=== PATIENT | female | born 1975 | race Caucasian/White ===

== ENCOUNTER → 2019-12-06 12:17 | Outpatient (BNVA) | payer OTHER, SELFPAY | PROVIDERS: Family Provider Nurse Practitioner Family; PCP Nurse Practitioner Family; Visit Provider Nurse Practitioner Family | DX: E07.9 Disorder of thyroid, unspecified (principal); I10 Essential (primary) hypertension; M72.2 Plantar fascial fibromatosis; E03.9 Hypothyroidism, unspecified | CPT/HCPCS: 80053; 80061; 84439; 84443; 84481; 85025 ==

== ENCOUNTER → 2020-03-12 11:57 | Outpatient (BNVA) | payer OTHER, SELFPAY | PROVIDERS: Family Provider Nurse Practitioner Family; PCP Nurse Practitioner Family; Visit Provider Nurse Practitioner Family | DX: E03.9 Hypothyroidism, unspecified (principal); I10 Essential (primary) hypertension; M72.2 Plantar fascial fibromatosis | CPT/HCPCS: 80053; 84439; 84443; 84481; 85025 ==

== ENCOUNTER → 2020-03-28 13:53 | Outpatient (BNVA) | payer OTHER, SELFPAY | PROVIDERS: Family Provider Nurse Practitioner Family; PCP Nurse Practitioner Family; Visit Provider Nurse Practitioner Family | DX: J30.89 Other allergic rhinitis (principal); Z20.828 Contact with and (suspected) exposure to other viral communicable diseases | CPT/HCPCS: 87400; 87635 ==

== ENCOUNTER 2020-08-20 16:21 | Emergency (ER) | payer BC, SELFPAY ==
[2020-08-20 17:20] VITALS: BP 121/80; PULSE 100; RESP 16; TEMP 39.1; O2SAT 94; BMI 27.8
--- NOTE | 2020-08-20 18:30 | US_ITS ---
WS: [id number] ULTRASOUND LEFT BREAST HISTORY: Possible abscess. COMPARISON: None available. TECHNIQUE: 2-D and Doppler. At 12:00 is a hypoechoic nodule measuring 1.8 x 0.8 cm. No significant increased vascularity. There i s soft tissue edema and thickening. US/US breast LT limited* [id number] IMPRESSION: BI-RADS: 0-Incomplete: Need additional imaging evaluation FOLLOW-UP: Need Additional Imaging Incomplete evaluation of the LEFT breast. Possible abscess. Differential includ es necrotic neoplasm. Recommend follow-up ultrasound and mammogram if patient i s able to tolerate a mammogram. Short-term follow-up 3-4 weeks recommended.
--- NOTE | 2020-08-20 18:30 | W.ED.SKABFB ---
HPI - Skin/Abscess/Foreign Bdy General: Chief complaint: Skin/Abscess/Foreign Body Stated complaint: abscess chest, fever, weakness Time Seen by Provider: 08/20/20 18:19 History of Present Illness: HPI narrative: Patient has area on left breast that started last night that is tender swollen and very painful denies any insect bite or sting denies any pimple. Has no significant medical history besides hypothyroidism and hypertension MD complaint: abscess/boil Onset (ago): hour(s) Tetanus up to date: unsure Location: chest (Left breast) Severity: moderate Severity scale (1-10): 5 Quality: burning and constant Pain Consistency: constant Relieving factors: none Exacerbating factors: none Context: none Associated symptoms: Reports chills and fever(s); Deny nausea or vomiting Review of Systems Const: Reports: fever(s) and chills Eyes: Denies: change in vision or blurry vision ENMT: Denies: throat pain or nasal congestion Card: Denies: chest pain or dyspnea on exertion Resp: Denies: dyspnea, productive cough or non-productive cough GI: Denies: abdominal pain, nausea or vomiting Musc: Denies: extremity pain Skin/Breast: Reports: erythema, skin tenderness (Left breast appears to be an abscess very tender) and skin swelling; Denies: rash Neuro: Denies: headache(s) Psych: Denies: anxiety or depression Porfirio/Lymph: Denies: easy bruising PFSH ED PFSH: Medical History (Updated 08/20/20 @ 19:35 by BABITA Alberto) Acquired hypothyroidism Essential (primary) hypertension Family History Family/Other No pertinent family history Social History (Updated 08/20/20 @ 17:25 by Ap Gaxiola RN) Smoking and tobacco status: never smoked Second hand smoke exposure: No Alcohol intake: never Substance/Drug Use: never Lives independently: Yes Housing: House Current occupational status: unemployed History of recent travel: No Current gender identity: Female Physical Exam Const: COMMON NORMALS: no acute distress, average body habitus and patient oriented x3 HENMT: COMMON NORMALS: normocephalic HEAD & SCALP: normal to inspection and normocephalic FACE & SINUS: normal facial exam Eye: COMMON NORMALS: conjunctivae normal GENERAL EYE: appearance normal, both eyes and all related structures CONJUNCTIVA: Yes conjunctivae normal Neck/C-Spine: COMMON NORMALS: no JVD Chest: COMMONS NORMALS: normal inspection of the chest Resp: COMMON NORMALS: normal respiratory effort and clear to auscultation bilaterally AUSCULTATION: clear to auscultation bilaterally Cardio: COMMON NORMALS: no JVD, regular rate and regular rhythm RATE: regular rate RHYTHM: regular rhythm GI: COMMON NORMALS: Normal to inspection, nondistended, normoactive bowel sounds present Extremity: COMMON NORMALS: normal to inspection and full ROM Neuro: COMMON NORMALS: patient oriented x3 Skin: OTHER: Redness to the tail of left breast midline tingling about 2 inches out from the cyst area proximal more than distal Procedures Abscess I/D Site: other (Breast) Side (if applicable): left Local Anesthetic: lidocaine 1% Amount of anesthesia used (mL): 3 Technique: incised with #11 blade Irrigation: Yes Packing used?: iodoform Complications: other (Patient had a sebaceous cyst I did not remove the sebaceous cyst wall but did remove the contents of the cyst) Course Vital Signs: Vital signs: Vital Signs Temperature 102.4 F H 08/20/20 17:20 Pulse Rate 100 08/20/20 17:20 Respiratory Rate 20 H 08/20/20 18:38 Blood Pressure 121/80 08/20/20 17:20 Pulse Oximetry 94 08/20/20 17:20 MDM - Skin/Abscess/Foreign Bdy Lab Data: Labs: Lab Results 08/20/20 08/20/20 08/20/20 Range/Units 18:30 18:30 18:30 WBC 17.7 H (4.0-10.0) 10^3/ uL RBC 5.03 (4.1-5.3) 10^6/u L Hgb 15.4 H (11.5-15.3) g/dL Hct 46.1 (37.0-47.0) % MCV 91.7 (81-99) fL MCH 30.6 (28.0-34.0) pg MCHC 33.4 (30.0-36.0) g/dL RDW 13.5 (12.1-15.1) % Plt Count 268 (130-400) 10^3/c mm MPV 10.1 (7.4-10.4) fL Neut % (Auto) 83.1 % Lymph % (Auto) 8.8 % [place] % (Auto) 6.3 % Eos % (Auto) 0.8 % Baso % (Auto) 0.6 % Neut # (Auto) 14.70 H (1.8-7.7) 10^3/u L Lymph # (Auto) 1.6 (0.8-4.8) 10^3/u L [place] # (Auto) 1.1 H (0.2-0.9) 10^3/u L Eos # (Auto) 0.1 (0.0-0.8) 10^3/u L Baso # (Auto) 0.1 (0.0-0.1) 10^3/u L Nucleated RBC % (a uto) 0 % Nucleated RBCs # 0.0 /100WBC Sodium 136 (136-145) mmol/L Potassium 3.8 (3.5-5.1) mmol/L Chloride 102 (98-107) mmol/L Carbon Dioxide 21 L (22-29) mmol/L Anion Gap 16.8 (5-19) BUN 9 (6-20) mg/dL Creatinine 0.6 (0.5-0.9) mg/dL GFR Calculation 107.6 (90-130) mL/min Glucose 120 H (65-115) mg/dL Calculated Osmolal ity 282 L (285-295) mOsm/k g Lactate 0.8 (0.5-2.2) mmol/L Calcium 9.4 (8.5-10.5) mg/dL Discharge Plan Discharge Patient Disposition: Home Clinical Impression: Sebaceous cyst Condition: Stable Prescriptions: New Keflex 500 mg capsule 500 mg PO BID 7 Days Qty: 14 RF: 0 hydrocodone-acetaminophen 5-325 mg tablet 1 tab PO Q6H PRN (Reason: pain) Qty: 10 RF: 0 No Action montelukast [Singulair] 10 mg tablet 10 mg PO DAILY Qty: 30 RF: 0 levothyroxine 150 mcg tablet 150 mcg PO QDAY Qty: 90 RF: 1 amlodipine 10 mg tablet 10 mg PO QDAY Qty: 90 RF: 1 Discharge Orders: Discharge Order (Routine); Ordered 10/06/20 Ordered By: Chuy Hanna Referrals: Sofia Rankin FNP [Primary Care Provider] - Discharge Diet: Usual diet Discharge Activity: Increase activity as tolerated Patient Instructions: Abscess (ED) Activity Restrictions/Additional Instructions: Follow-up with medical provider as directed. Take medications as prescribed. Return to the ER or your medical provider if condition worsens. Please read and understand discharge instructions. If any questions ask please. Follow-up packing in 24 hours Stand Alone Forms: Work/School Release Discharge Date/Time: 08/20/20 19:50 Coding Level of Care Code ED Wildlife [employer] Professor for Chg Fwd Exam Comprehensive
[2020-08-20 18:38] VITALS: RESP 20
[2020-08-20] MEDS: ondansetron 2 mg/ML SDV 2 mL 4 MG IVP (18:38)
[2020-08-20] MEDS: morphine 4 mg/mL SDV 1 mL IVP (18:38)
[2020-08-20 18:54] LABS: Basophils # 0.1 10^3/uL (0.0-0.1); Basophils % 0.6 %; Eosinophils # 0.1 10^3/uL (0.0-0.8); Eosinophils % 0.8 %; Hematocrit 46.1 % (37.0-47.0); Hemoglobin 15.4 g/dL (11.5-15.3); Lymphocytes # 1.6 10^3/uL (0.8-4.8); Lymphocytes % 8.8 %; Mean Corpuscular HGB Conc 33.4 g/dL (30.0-36.0); Mean Corpuscular Hemoglobin 30.6 pg (28.0-34.0); Mean Corpuscular Volume 91.7 fL (81-99); Mean Platelet Volume 10.1 fL (7.4-10.4); Monocytes # 1.1 10^3/uL (0.2-0.9); Monocytes % 6.3 %; Neutrophils % 83.1 %; Nucleated Red Blood Cells % 0 %; Platelet Count 268 10^3/cmm (130-400); Red Blood Count 5.03 10^6/uL (4.1-5.3); Red Cell Distribution Width 13.5 % (12.1-15.1); White Blood Count 17.7 10^3/uL (4.0-10.0)
[2020-08-20 18:58] LABS: Anion Gap 16.8 (5-19); Blood Urea Nitrogen 9 mg/dL (6-20); Calcium 9.4 mg/dL (8.5-10.5); Carbon Dioxide 21 mmol/L (22-29); Chloride 102 mmol/L (98-107); Glomerular Filtration Rate 107.6 mL/min (90-130); Glucose 120 mg/dL (65-115); Osmolality Calculated 282 mOsm/kg (285-295); Potassium 3.8 mmol/L (3.5-5.1); Sodium 136 mmol/L (136-145)
[2020-08-20] MEDS: cefTRIAXone 2,000 MG in sodium chloride 0.9% (plus) 50 ML 100 MG IV (19:02)
[2020-08-20 19:42] LABS: Lactate (Lactic Acid level) 0.8 mmol/L (0.5-2.2)
== END 2020-08-20 19:50 | disposition home or self-care (01) ==
PROVIDERS: Emergency Provider Nurse Practitioner Family; PCP Nurse Practitioner Family
DX: N60.82 Other benign mammary dysplasias of left breast (principal); I10 Essential (primary) hypertension
CPT/HCPCS: 10060; 12345; 76642; 80048; 83605; 85025; 87040; 87070; 87077; 87186; 96365; 96375; 99282; 99284; J0696; J2270; J2405

== ENCOUNTER → 2020-08-27 16:58 | Outpatient (BNVA) | payer BC, SELFPAY | PROVIDERS: PCP Nurse Practitioner Family; Visit Provider Nurse Practitioner Family | DX: L72.3 Sebaceous cyst (principal) | CPT/HCPCS: 84450; 87070 ==

== ENCOUNTER → 2020-10-23 16:54 | Outpatient (BNVA) | payer BC, SELFPAY | PROVIDERS: PCP Nurse Practitioner Family; Visit Provider Nurse Practitioner Family | DX: E03.9 Hypothyroidism, unspecified (principal); I10 Essential (primary) hypertension | CPT/HCPCS: 80053; 80061; 84439; 84443; 84481; 85025 ==

== ENCOUNTER → 2021-08-04 16:23 | Outpatient (BNVA) | payer BC, SELFPAY | PROVIDERS: PCP Nurse Practitioner Family; Visit Provider Nurse Practitioner Family | DX: Z76.0 Encounter for issue of repeat prescription (principal); M79.604 Pain in right leg; M79.605 Pain in left leg; E03.9 Hypothyroidism, unspecified; E04.1 Nontoxic single thyroid nodule; I10 Essential (primary) hypertension; Z71.89 Other specified counseling | CPT/HCPCS: 80053; 80061; 82306; 82607; 83735; 84439; 84443; 84481; 85025 ==

== ENCOUNTER 2021-09-03 12:34 | Outpatient (CLI) | payer BC, SELFPAY ==
--- NOTE | 2021-09-03 12:45 | US_ITS ---
WS: [id number] ULTRASOUND THYROID TECHNIQUE: Ultrasound of the thyroid. CLINICAL INFORMATION: E03.9 - Hypothyroidism, unspecified COMPARISON: None. FINDINGS: Thyroid: Enlarged thyroid with diffuse heterogeneous echotexture in both thyroid lobes most consisten t with multinodular goiter. Thyroid gland volume measures 19 cc on the left and 14 cc on the right. Right thyroid lobe: 6.0 cm x 2.4 cm x 2.6 cm Left thyroid lobe: 5.2 cm x 1.9 cm x 2.8 cm. Isthmus: 0.2 mm. Cervical lymphadenopathy: None. US/US thyroid [id number] IMPRESSION: 1. Enlarged heterogeneous thyroid with diffuse heterogeneous echotexture most consistent with multinodular goiter. Recommend correlation with thyroid functio n studies.
== END 2021-09-03 12:35 | disposition home or self-care (01) ==
LOC: RAD 12:36
PROVIDERS: PCP Nurse Practitioner Family; Visit Provider Nurse Practitioner Family
DX: E03.9 Hypothyroidism, unspecified (principal); E04.9 Nontoxic goiter, unspecified
CPT/HCPCS: 76536

== ENCOUNTER → 2021-12-25 12:12 | Outpatient (BNVA) | payer BC, SELFPAY | PROVIDERS: PCP Nurse Practitioner Family; Visit Provider Nurse Practitioner Family | DX: I10 Essential (primary) hypertension (principal) | CPT/HCPCS: 80053; 80061; 84439; 84443; 84481; 85025 ==

== ENCOUNTER → 2023-06-15 13:06 | Outpatient (BNVA) | payer BC, SELFPAY | PROVIDERS: PCP Nurse Practitioner Family; Visit Provider Nurse Practitioner Family | DX: I10 Essential (primary) hypertension (principal); E03.9 Hypothyroidism, unspecified; G43.909 Migraine, unspecified, not intractable, without status migrainosus; E78.5 Hyperlipidemia, unspecified | CPT/HCPCS: 80053; 80061; 84439; 84443; 84481; 85025; 86376 ==

== ENCOUNTER → 2023-10-04 11:06 | Outpatient (BNVA) | payer BC, SELFPAY | PROVIDERS: PCP Nurse Practitioner Family; Visit Provider Nurse Practitioner Family | DX: E03.9 Hypothyroidism, unspecified (principal); E78.5 Hyperlipidemia, unspecified; I10 Essential (primary) hypertension | CPT/HCPCS: 80053; 80061; 84439; 84443; 84481; 85025 ==

== ENCOUNTER → 2024-01-13 10:54 | Outpatient (BNVA) | payer SELFPAY | PROVIDERS: PCP Nurse Practitioner Family; Visit Provider Nurse Practitioner Family | DX: E03.9 Hypothyroidism, unspecified (principal) | CPT/HCPCS: 84439; 84443; 84481 ==

== ENCOUNTER → 2024-04-19 10:03 | Outpatient (BNVA) | payer OTHER, SELFPAY | PROVIDERS: PCP Nurse Practitioner Family; Visit Provider Nurse Practitioner Family | DX: R07.0 Pain in throat (principal); E03.9 Hypothyroidism, unspecified; E78.5 Hyperlipidemia, unspecified; R73.9 Hyperglycemia, unspecified; G47.10 Hypersomnia, unspecified | CPT/HCPCS: 80053; 80061; 83036; 84439; 84443; 85025; 87880 ==

== ENCOUNTER → 2025-02-22 08:36 | Outpatient (BNVA) | payer BC, SELFPAY | PROVIDERS: PCP Nurse Practitioner Family; Visit Provider Nurse Practitioner Family | DX: I10 Essential (primary) hypertension (principal); E03.9 Hypothyroidism, unspecified | CPT/HCPCS: 80053; 80061; 84439; 84443; 84481; 85025 ==

== ENCOUNTER → 2025-11-02 10:08 | Outpatient (BNVA) | payer BC, SELFPAY | PROVIDERS: PCP Nurse Practitioner Family; Visit Provider Nurse Practitioner Family | DX: E78.5 Hyperlipidemia, unspecified (principal); E03.9 Hypothyroidism, unspecified | CPT/HCPCS: 80053; 80061; 84439; 84443; 85025 ==